=== PATIENT | male | born 1995 | race Two or more races ===

== ENCOUNTER 2018-02-05 09:24 | Emergency (ER) | payer MEDICAID ==
--- NOTE | 2018-02-05 09:59 | ED Physician Chart ---
ED Chief Complaint/HPI - Patient Information Date Seen:: 02/05/18 Time Seen:: 09:15 Chief Complaint:: sore throat History of Present Illness:: Patient's had a sore throat and occipital headache for 2 days. He has felt warm. Temperature not taken. No cough. Patient has felt weak and tired for 3 days only. Allergies:: Allergies Allergy/AdvReac Type Severity Reaction Status Date / Time No Known Allergies Allergy Verified 02/05/18 09:43 Vitals:: Vital Signs - 8 hr 02/05/18 09:38 Temp 100.8 F HR 110 RR 18 BP 112/81 O2 Sat % 99 Historian:: Patient Review:: Nurse's Note Reviewed ED Review of Systems - Review of Systems General/Constitutional: Fever Skin: No skin lesions Head: No headache Eyes: No loss of vision ENT: No earache, Sore throat Neck: No neck pain Cardio Vascular: No chest pain, No palpitations Pulmonary: No SOB GI: No nausea, No vomiting, No diarrhea G/U: No dysuria Musculoskeletal: No bone or joint pain Endocrine: No polyuria Psychiatric: No prior psych history, No depression, No anxiety ED Past Medical History - Past Medical History Past Medical History: No significant medical hx Family History: None Social History: Non Smoker, Other (occasional alcohol consumption) Surgical History: None Psychiatricy History: None Medication: None Family Medical History - Family Member Father Age: 55 Ethnicity: Living Status: Still Living Hx Family Hypertension: Yes ED Physical Exam - Physical Examination General/Constitutional: Well-developed, well-nourished, Alert Head: Atraumatic Eyes: Lids, conjuctiva normal, PERRL Skin: Nl inspection, No rash ENMT: External ears, nose nl, TM canals nl, Nasal exam nl, Lips, teeth, gums nl Other ENMT comments:: Tonsils red and not enlarged; exudate on both tonsils Neck: No nuchal rigidity Respiratory: Nl effort/Exclusion, Clear to Auscultation, No Wheeze/Rhonchi/Rales Cardio Vascular: RRR, No murmur, gallop, rubs, NL S1 S2 GI: No tenderness/rebounding/guarding, No organomegaly Extremities: Normal digits & nails Neuro/Psych: No focal deficits Misc: No paraspinal tenderness ED Labs/Radiology/EKG Results - Lab Results Results: Abnormal Lab Results 02/05/18 10:05 WBC 16.3 H RBC 4.69 Hgb 13.0 Hct 38.6 L MCV 82.5 MCH 27.8 MCHC Differential 33.7 RDW 11.5 Plt Count 244 MPV 7.0 Add Manual Diff YES Band Neutrophils % 6 Neutrophils (Manual) 84 H Lymphocytes 3 L Monocytes 3 Atypical Lymphocytes 4 Platelet Estimate ADEQUATE ED Assessment - Assessment General Assessment: Patient has pustular tonsillitis with only 3% lymphocytes so he does not have mononucleosis. There is a very good chance patient's has streptococcal pharyngitis so patient will prescribed a Z-Greg ED Septic Shock - . Is Septic Shock (SBP<90, OR Lactate>4 mmol\L) present?: No - <6hrs of presentation: Vital Signs: Vital Signs - 8 hr 02/05/18 09:38 Temp 100.8 F HR 110 RR 18 BP 112/81 O2 Sat % 99 ED Reassessment (Disposition) - Reassessment Reassessment Condition:: Unchanged - Diagnosis Diagnosis:: Pustular tonsillitis - Aftercare/Follow up Instructions Aftercare/Follow-Up Instructions:: Refer to Discharge Instructions - Patient Disposition Discharge/Transfer:: Home Condition at Disposition:: Stable, Unchanged
[2018-02-05 10:12] LABS: HEMATOCRIT 38.6 % (41.0-60); MEAN CELL VOLUME 82.5 fl (80-99); MEAN CORPUSCULAR HEMOGLOBIN 27.8 pg (26.0-30.0); MEAN CORPUSCULAR HGB CONC 33.7 pg (28.0-36.0); PLATELET COUNT 244 Th/cmm (150-400); RED BLOOD COUNT 4.69 Mil/cmm (4.30-5.70); RED CELL DISTRIBUTION WIDTH 11.5 % (11.5-20.0)
[2018-02-05 10:25] LABS: WHITE BLOOD COUNT 16.3 Th/cmm (4.8-10.8)
[2018-02-05 10:46] LABS: ATYPICAL LYMPH 4 %; BAND NEUTROPHILE 6 % (0-10); LYMPHOCYTE 3 % (20-50); MONOCYTE 3 % (2-10); NEUTROPHILS 84 % (40-80); PLATELET ESTIMATE ADEQUATE (NORMAL)
== END 2018-02-05 11:15 | disposition home or self-care (01) ==
LOC: ER 09:24
DX: J03.90 Acute tonsillitis, unspecified (principal)
CPT/HCPCS: 36415-UA; 85007-TC; 85025-TC; Z7502

== ENCOUNTER 2018-07-27 21:06 | Emergency (ER) | payer MEDICAID ==
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
== END 2018-07-27 23:05 | disposition home or self-care (01) ==
LOC: ER 21:06
DX: R51 Headache (principal); V89.2XXA Person injured in unspecified motor-vehicle accident, traffic, initial encounter; Y93.89 Activity, other specified; Y92.410 Unspecified street and highway as the place of occurrence of the external cause; Y99.8 Other external cause status
CPT/HCPCS: Z7502

== ENCOUNTER 2018-10-06 21:29 | Emergency (ER) | payer MEDICAID ==
--- NOTE | 2018-10-06 21:41 | ED Physician Chart ---
ED Chief Complaint/HPI - Patient Information Date Seen:: 10/06/18 Time Seen:: 21:41 Chief Complaint:: Fever History of Present Illness:: 23 yo male with no PMH developed headache and fever up to 101 F for 2 days. Pt has sore throat and cough with minimal sputum. Allergies:: Allergies Allergy/AdvReac Type Severity Reaction Status Date / Time No Known Allergies Allergy Verified 10/06/18 21:40 ED Review of Systems - Review of Systems General/Constitutional: Fever, No chills Skin: No rash Head: Headache ENT: No earache Neck: No neck pain Cardio Vascular: No chest pain Pulmonary: No SOB GI: Nausea, No vomiting Musculoskeletal: No bone or joint pain, No muscle pain Neurological: No focal symptoms ED Past Medical History - Past Medical History Past Medical History: No significant medical hx Social History: Non Smoker, Alcohol, No Drug Use Surgical History: None Family Medical History - Family Member Father History Unknown: Yes Ethnicity: Living Status: Still Living Hx Family Hypertension: Yes ED Physical Exam - Physical Examination General/Constitutional: Awake, Alert Head: Atraumatic Eyes: PERRL, EOMI Skin: No skin lesions ENMT: Nasal exam nl Neck: No nuchal rigidity Respiratory: Clear to Auscultation, No Wheeze/Rhonchi/Rales Cardio Vascular: RRR, No murmur, gallop, rubs, NL S1 S2 GI: No tenderness/rebounding/guarding Extremities: normal strength in all extremities Neuro/Psych: No focal deficits ED Labs/Radiology/EKG Results - Lab Results Results: Laboratory Last Values WBC 13.0 Th/cmm (4.8-10.8) H 10/06/18 22:05 RBC 5.32 Mil/cmm (4.30-5.70) 10/06/18 22:05 Hgb 15.2 gm/dL (12-16) 10/06/18 22:05 Hct 43.9 % (41.0-60) 10/06/18 22:05 MCV 82.5 fl (80-99) 10/06/18 22:05 MCH 28.6 pg (26.0-30.0) 10/06/18 22:05 MCHC Differential 34.7 pg (28.0-36.0) 10/06/18 22:05 RDW 12.5 % (11.5-20.0) 10/06/18 22:05 Plt Count 266 Th/cmm (150-400) 10/06/18 22:05 MPV 7.5 fl 10/06/18 22:05 Neutrophils % 75.9 % (40.0-80.0) 10/06/18 22:05 Lymphocytes % 13.6 % (20.0-50.0) L 10/06/18 22:05 Monocytes % 8.0 % (2.0-10.0) 10/06/18 22:05 Eosinophils % 2.3 % (0.0-5.0) 10/06/18 22:05 Basophils % 0.2 % (0.0-2.0) 10/06/18 22:05 Sodium 137 mEq/L (136-145) 10/06/18 22:05 Potassium 4.0 mEq/L (3.5-5.1) 10/06/18 22:05 Chloride 102 mEq/L (98-107) 10/06/18 22:05 Carbon Dioxide 28.9 mEq/L (21.0-31.0) 10/06/18 22:05 Anion Gap 10.1 (7.0-16.0) 10/06/18 22:05 BUN 14 mg/dL (7-25) 10/06/18 22:05 Creatinine 0.9 mg/dL (0.7-1.3) 10/06/18 22:05 Est GFR ( Amer) > 60.0 ml/min (>90) 10/06/18 22:05 Est GFR (Non-Af Amer) > 60.0 ml/min 10/06/18 22:05 BUN/Creatinine Ratio 15.6 10/06/18 22:05 Glucose 95 mg/dL (70-105) 10/06/18 22:05 Calcium 9.5 mg/dL (8.6-10.3) 10/06/18 22:05 Total Bilirubin 0.5 mg/dL (0.3-1.0) 10/06/18 22:05 AST 14 U/L (13-39) 10/06/18 22:05 ALT 15 U/L (7-52) 10/06/18 22:05 Alkaline Phosphatase 81 U/L (34-104) 10/06/18 22:05 Total Protein 7.2 gm/dL (6.0-8.3) 10/06/18 22:05 Albumin 4.4 gm/dL (4.2-5.5) 10/06/18 22:05 Globulin 2.8 gm/dL 10/06/18 22:05 Albumin/Globulin Ratio 1.6 (1.0-1.8) 10/06/18 22:05 Urine Source MIDSTREAM 10/06/18 21:50 Urine Color YELLOW 10/06/18 21:50 Urine Clarity CLEAR (CLEAR) 10/06/18 21:50 Urine pH 7.0 (4.6 - 8.0) 10/06/18 21:50 Ur Specific [place] 1.015 (1.005-1.030) 10/06/18 21:50 Urine Protein NEGATIVE mg/dL (NEGATIVE) 10/06/18 21:50 Urine Glucose (UA) NEGATIVE mg/dL (NEGATIVE) 10/06/18 21:50 Urine Ketones NEGATIVE mg/dL (NEGATIVE) 10/06/18 21:50 Urine Blood TRACE (NEGATIVE) 10/06/18 21:50 Urine Nitrate NEGATIVE (NEGATIVE) 10/06/18 21:50 Urine Bilirubin NEGATIVE (NEGATIVE) 10/06/18 21:50 Urine Urobilinogen 0.2 E.U./dL (0.2 - 1.0) 10/06/18 21:50 Ur Leukocyte Esterase NEGATIVE (NEGATIVE) 10/06/18 21:50 Urine RBC 0-2 /hpf (0-5) H 10/06/18 21:50 Urine WBC 0-2 /hpf (0-5) 10/06/18 21:50 Ur Epithelial Cells NONE SEEN /lpf (FEW) 10/06/18 21:50 Urine Bacteria NONE SEEN /hpf (NONE SEEN) 10/06/18 21:50 Influenza A (Rapid) NEG FOR INF A 10/06/18 21:45 Influenza B (Rapid) NEG FOR INF B 10/06/18 21:45 - Radiology Results Results: CXR: no acute disease ED Assessment - Assessment General Assessment: Leukocytosis Assessment/Comments:: CBC, CMP, Rapid strep, Influenza A/B screen, UA CXR Tylenol 650 mg PO x 1 Rocephin 1 g IM x 1 ED Septic Shock - . Is Septic Shock (SBP<90, OR Lactate>4 mmol\L) present?: No ED Reassessment (Disposition) - Reassessment Reassessment Condition:: Improved - Aftercare/Follow up Instructions Notes:: D/c home F/u PCP or return to ER if symptoms worsen - Patient Disposition Discharge/Transfer:: Home
[2018-10-06] MEDS ORDERED: Sodium Chloride 0.9% 1,000 ML IV ONE (21:47)
[2018-10-06 22:20] LABS: % BASOPHILS 0.2 % (0.0-2.0); % EOSINOPHILS 2.3 % (0.0-5.0); % LYMPHOCYTES 13.6 % (20.0-50.0); % NEUTROPHILS 75.9 % (40.0-80.0); EOSINOPHILE ABSOLUTE 0.3 Th/cmm (0.1-0.4); HEMATOCRIT 43.9 % (41.0-60); HEMOGLOBIN 15.2 gm/dL (12-16); LYMPHOCYTE ABSOLUTE 1.8 Th/cmm (1.5-3.0); MEAN CELL VOLUME 82.5 fl (80-99); MEAN CORPUSCULAR HEMOGLOBIN 28.6 pg (26.0-30.0); MEAN CORPUSCULAR HGB CONC 34.7 pg (28.0-36.0); NEUTROPHILE ABSOLUTE 9.9 Th/cmm (1.8-8.0); PLATELET COUNT 266 Th/cmm (150-400); RED BLOOD COUNT 5.32 Mil/cmm (4.30-5.70); RED CELL DISTRIBUTION WIDTH 12.5 % (11.5-20.0)
[2018-10-06 22:34] LABS: ALB/GLOB RATIO 1.6 (1.0-1.8); ALBUMIN 4.4 gm/dL (4.2-5.5); ALKALINE PHOSPHATASE 81 U/L (34-104); ANION GAP 10.1 (7.0-16.0); BILIRUBIN,TOTAL 0.5 mg/dL (0.3-1.0); BUN - UREA NITROGEN 14 mg/dL (7-25); CALCIUM SERUM 9.5 mg/dL (8.6-10.3); CARBON DIOXIDE 28.9 mEq/L (21.0-31.0); CHLORIDE 102 mEq/L (98-107); CREATININE - SERUM 0.9 mg/dL (0.7-1.3); GFR AFRICAN-AMERICAN > 60.0 ml/min (>90); GFR NON AFRICAN-AMERICAN > 60.0 ml/min; GLUCOSE 95 mg/dL (70-105); SGOT 14 U/L (13-39); SGPT/ALT 15 U/L (7-52); SODIUM SERUM 137 mEq/L (136-145); TOTAL PROTEIN,SERUM 7.2 gm/dL (6.0-8.3)
[2018-10-06 22:39] LABS: URINE SOURCE MIDSTREAM
[2018-10-06 22:53] LABS: URINE BILIRUBIN NEGATIVE (NEGATIVE); URINE BLOOD TRACE (NEGATIVE); URINE GLUCOSE (UA) NEGATIVE (NEGATIVE); URINE KETONE NEGATIVE (NEGATIVE); URINE LEUKOCYTE ESTERASE NEGATIVE (NEGATIVE); URINE MICROSCOPIC INDICATED? YES; URINE NITRATE NEGATIVE (NEGATIVE); URINE PROTEIN NEGATIVE (NEGATIVE); URINE UROBILINOGEN 0.2 E.U./dL (0.2 - 1.0)
[2018-10-06 23:01] LABS: URINE CLARITY CLEAR (CLEAR); URINE COLOR YELLOW
[2018-10-06 23:23] LABS: URINE EPITHELIAL CELLS NONE SEEN /lpf (FEW)
[2018-10-06 23:25] LABS: URINE BACTERIA NONE SEEN /hpf (NONE SEEN); URINE RBC 0-2 /hpf (0-5); URINE WBC 0-2 /hpf (0-5)
[2018-10-06 23:32] LABS: INF A SCREEN NEG FOR INF A; INF B SCREEN NEG FOR INF B
--- NOTE | 2018-10-07 10:30 | Diagnostic Imaging Report ---
CHEST X-RAY: AP view INDICATION: Shortness of breath COMPARISON: None FINDINGS: There is no focal consolidation or pleural effusions The heart is normal in size. The osseous structures demonstrate no acute abnormalities. IMPRESSION: No acute cardiopulmonary disease.
== END 2018-10-06 23:40 | disposition home or self-care (01) ==
LOC: ER 21:29
DX: J02.9 Acute pharyngitis, unspecified (principal); D72.829 Elevated white blood cell count, unspecified
CPT/HCPCS: 99284; 96372; 71045; 36415; 87081; 87804 ×2; 85025; 81001; 80053; J0696; J2001; Z7610